=== PATIENT | female | born 1985 | race Caucasian/White ===

== ENCOUNTER 2021-10-24 17:09 | Outpatient (CLI) | payer OTHER, SELFPAY | END 2021-10-24 17:10 | disposition home or self-care (01) | LOC: NFLDREF 17:11 | PROVIDERS: Visit Provider Physician Assistant | DX: Z01.419 Encounter for gynecological examination (general) (routine) without abnormal findings (principal) | CPT/HCPCS: 87624; 88175 ==

== ENCOUNTER 2022-01-27 05:17 | Emergency (ER) | payer OTHER, SELFPAY ==
[2022-01-27 05:20] VITALS: BP 131/97; PULSE 98; RESP 18; TEMP 36.7; O2SAT 99; BMI 19.2
--- NOTE | 2022-01-27 05:32 | ED.WOUNDLAC ---
HPI - Wound/Laceration General Chief Complaint: Laceration/Wound Stated Complaint: Cut LT finger Time Seen by Provider: 01/27/22 05:19 History of Present Illness HPI narrative: Pt is a 36 year old woman up to date on her Tdap who unfortunately broke her coffee pot this morning and in the process suffered a flap laceration of the medial left upper extremity second digit. As mentioned, this is a flap approximately 1 cm on each side with good wound approximation. No neurologic or musculoskeletal weakness or defects. Pt otherwise has full range of motion. No signs of foreign body in the wound. Related Data Home Medications Medication Instructions Recorded Confirmed desogestrel 0.15 mg-ethinyl 1 tab PO DAILY 10/24/21 01/27/22 estradiol 0.03 mg tablet meclizine 25 mg tablet 25 mg PO PRN 10/24/21 12/21/21 Previous Rx's Medication Instructions Recorded desogestrel 0.15 mg-ethinyl 1 tab PO QDAY #84 tabs 10/24/21 estradiol 0.03 mg tablet (Apri) spironolactone 50 mg tablet 50 mg PO BID #120 tabs 12/21/21 sulfacetamide sodium (acne) 10 % 1 applic topical BID #118 mL 12/21/21 lotion (suspension) tretinoin 0.025 % topical cream 1 applic topical .Bedtime #45 grams 12/21/21 Allergies Allergy/AdvReac Type Severity Reaction Status Date / Time nickel Allergy Intermediate Rash Verified 01/27/22 05:24 adhesive Allergy Unknown Verified 01/27/22 05:24 dermabond Allergy Mild Rash Uncoded 01/27/22 05:24 Review of Systems Status of ROS: Reports: 6 or more systems reviewed and unremarkable except as noted in History and below [facility] Medical History (Updated 01/27/22 @ 05:38 by Charles Sahu MD) Acne Cervical dysplasia Fracture of clavicle Surgical History (Updated 10/24/21 @ 11:33 by Dinora Tuttle PA-C) History of open reduction and internal fixation (ORIF) procedure History of ovarian cystectomy (2007) Status post loop electrosurgical excision procedure (LEEP) of cervix Family History (Updated 10/17/21 @ 08:33 by Imelda Sylvester) Aunt Breast cancer Paternal Grandfather Diabetes Paternal Grandmother Diabetes Maternal Grandmother Colon cancer Other Pancreatic cancer Social History (Updated 10/17/21 @ 08:34 by Imelda Sylvester) Narrative: Does not have regular exercise regimen , plant accountant, 2 kids Non-smoker Social drinker- 1/week Smoking Status: Never smoker Do you use any of these nicotine containing products: None Second hand tobacco smoke exposure: No How often do you have a drink containing alcohol: never AUDIT-C Alcohol total score: 0 Non-prescribed substance use: denies use Little interest or pleasure in doing things: not at all Feeling down, depressed, or hopeless: not at all Exam Narrative: Exam Narrative: EXAM GENERAL: Patient appears comfortable and well. EYES: No scleral icterus. SKIN: Visible skin seen during exam normal or with benign process only. EXT: No dependent lower extremity pedal edema. Laceration as described above. PSYCH: Good eye contact, speech is not pressured. Const: Vital Signs, click to edit/add: Vital Signs - 24 hr 01/27/22 05:20 Temperature 98.1 F Pulse Rate [Right Pulse Oximeter] 98 Respiratory Rate 18 Blood Pressure [Ri ght Upper Arm] 131/97 H Pulse Oximetry 99 Oxygen Delivery Me thod Room Air Course Course Hospital Course: Pt seen and examined. Wound cleaned and dressed. No need for closure. Vital Signs Vital signs: Initial Vital Signs Temperature 98.1 F 01/27/22 05:20 Temperature Source Temporal Artery Scan 01/27/22 05:20 Pulse Rate 98 01/27/22 05:20 Pulse Rhythm 01/27/22 05:20 Pulse Strength 3+ Normal 01/27/22 05:20 Respiratory Rate 18 01/27/22 05:20 Blood Pressure 131/97 H 01/27/22 05:20 Blood Pressure Mean 108 01/27/22 05:20 Blood Pressure Position Sitting 01/27/22 05:20 Pulse Oximetry 99 01/27/22 05:20 Oxygen Delivery Method 01/27/22 05:20 Vital Signs Temperature 98.1 F 01/27/22 05:20 Pulse Rate 98 01/27/22 05:20 Respiratory Rate 18 01/27/22 05:20 Blood Pressure 131/97 H 01/27/22 05:20 Pulse Oximetry 99 01/27/22 05:20 Oxygen Delivery Method 01/27/22 05:20 Temperature 98.1 F 01/27/22 05:20 Pulse Rate 98 01/27/22 05:20 Respiratory Rate 18 01/27/22 05:20 Blood Pressure 131/97 H 01/27/22 05:20 Pulse Oximetry 99 01/27/22 05:20 Oxygen Delivery Method 01/27/22 05:20 MDM - Wound/Laceration MDM Narrative Medical decision making narrative: Pt suffered a small laceration on the second digit of the left upper extremity. Pt allergic to dermabond and I do not believe the wound will require sutures. Tdap up to date. Wound cleaned and dressed. Follow up as needed Differential Diagnosis Differential diagnosis: Likely laceration, abrasion and avulsion of skin Discharge Plan Discharge Clinical Impression: Laceration Patient Disposition: Home, Self-Care Condition: Stable Instructions: Laceration Without Closure (ED) Activity Level: No Restrictions Discharge Diet: Regular Prescriptions: No Action spironolactone 50 mg tablet 50 mg PO BID Qty: 120 4RF sulfacetamide sodium (acne) 10 % suspension 1 applic topical BID Qty: 118 1RF tretinoin 0.025 % cream 1 applic topical .Bedtime Qty: 45 3RF meclizine 25 mg tablet 25 mg PO PRN desogestrel-ethinyl estradiol 0.15-0.03 mg tablet 1 tab PO DAILY desogestrel-ethinyl estradiol [Apri] 0.15-0.03 mg tablet 1 tab PO QDAY Qty: 84 3RF Follow Up/Referrals: Provider,Not a Local [Primary Care Provider] - Stand Alone [facility]: [facility] Inst[facility]
--- NOTE | 2022-01-27 05:48 | ED.NURSE ---
Pt's wound cleansed with sterile gauze, sterile water, and hibicleanse. Wound dressed with bacitracin and bandaid.
== END 2022-01-27 05:47 | disposition home or self-care (01) ==
LOC: ED 05:38
PROVIDERS: Emergency Provider Internal Medicine
DX: S61.211A Laceration without foreign body of left index finger without damage to nail, initial encounter (principal); W25.XXXA Contact with sharp glass, initial encounter; Y93.9 Activity, unspecified; Y92.010 Kitchen of single-family (private) house as the place of occurrence of the external cause; Y99.9 Unspecified external cause status
CPT/HCPCS: 99282; 99283

== ENCOUNTER 2023-10-29 09:13 | Outpatient (CLI) | payer OTHER, SELFPAY | END 2023-10-29 09:14 | disposition home or self-care (01) | LOC: NFLDREF 10-30 11:28 | PROVIDERS: Visit Provider Physician Assistant | DX: Z01.419 Encounter for gynecological examination (general) (routine) without abnormal findings (principal); Z13.6 Encounter for screening for cardiovascular disorders; Z13.1 Encounter for screening for diabetes mellitus | CPT/HCPCS: 80061; 82947 ==

== ENCOUNTER 2024-11-09 11:10 | Outpatient (CLI) | payer OTHER, SELFPAY ==
[2024-11-12 06:07] LABS: HPV Source Cervix
[2024-11-12 15:40] LABS: HPV Genotype 16 by TMA Not Detected; HPV Genotype 18/45 by TMA Not Detected
[2024-11-13 11:17] LABS: Pap Test Digital Imaging Done; Pap Test Reviewed by Pathologi Done
== END 2024-11-09 11:11 | disposition home or self-care (01) ==
PROVIDERS: Visit Provider Physician Assistant
DX: N87.9 Dysplasia of cervix uteri, unspecified (principal); N91.2 Amenorrhea, unspecified
CPT/HCPCS: 83001; 84146; 84443; 87624; 87625; 88141; 88142; 88175

== ENCOUNTER 2024-12-11 11:17 | Outpatient (CLI) | payer OTHER, SELFPAY ==
--- NOTE | 2024-12-11 11:30 | CRLHL7_ITS ---
For Patients: As a result of the Century Cures Act, medical imaging exams and procedure reports are released immediately into your electronic medical record. You may view this report before your referring provider. If you have questions, please contact your health care provider. INDICATION: BILATERAL SCREENING MAMMOGRAM, ASYMPTOMATIC 39 Y/O FEMALE COMPARISON: BASELINE TECHNIQUE: Digital mammogram in CC and MLO projections including computer-aided detection (CAD) and tomosynthesis. BREAST COMPOSITION: The breasts are heterogeneously dense, which may obscure small masses. FINDINGS: No suspicious findings. ASSESSMENT: BI-RADS 1 Negative RECOMMENDATION: Annual screening mammogram. A lay language report of this examination will be provided to the patient. Dictated by: Daryn Babcock MD @ 12/11/2024 12:05:10 (Electronically Signed)
== END 2024-12-11 11:18 | disposition home or self-care (01) ==
LOC: MAMMO 11:17
PROVIDERS: Visit Provider Physician Assistant
DX: Z12.31 Encounter for screening mammogram for malignant neoplasm of breast (principal); R92.333 Mammographic heterogeneous density, bilateral breasts
CPT/HCPCS: 77063; 77067